=== PATIENT | female | born 1990 | race Caucasian/White ===

== ENCOUNTER → 2018-05-17 | Outpatient (CLI) | payer BC ==
--- NOTE | ~2018-05-17 | 2DMMODE ---
[facility] [place] [address] 2 D/M-MODE ECHOCARDIOGRAM Name: MORAKELVIN M Room #: REG [facility]#: [id number] Admission: 05/17/18 Attend Phys: Osmin Watts Discharge: Date of : 89 Date of Service: 05/17/18 1402 Report #: [id number] THIS REPORT FOR: //name// APPROVED REPORT Study performed: 05/17/2018 13:08:14 EXAM: Comprehensive 2D, Doppler, and color-flow Echocardiogram Patient Location: Echo lab Status: routine BSA: 1.73 HR: 70 bpm BP: 115/90 mmHg Rhythm: NSR Other Information Study Quality: Good Indications Palpitations 2D Dimensions RVDd: 26.21 mm LVEF(%): 57.61 (>50%) IVSd: 9.17 (7-11mm) LVOT Diam: 20.82 (18-24mm) LVDd: 44.84 mm PWd: 7.03 (7-11mm) Ascending Ao: 31.14 (22-36mm) LVDs: 31.32 (25-40mm) Aortic Root: 26.49 mm IVC: 1.70 mm Núñez's LVEF: 57.61 % Volumes Left Atrial Volume (Systole) Single Plane 4CH: 14.67 mL Single Plane 2CH: 34.21 mL LA ESV Index: 16.00 mL/m2 Aortic Valve AoV Peak Emeterio.: 1.24 m/s AO Peak Gr.: 6.16 mmHg LVOT Max P.64 mmHg LVOT Max V: 0.95 m/s MARITZA Vmax: 2.62 cm2 Mitral Valve E/A Ratio: 1.0 MV Decel. Time: 156.51 ms [facility] [address] [place] [address] 2 D/M-MODE ECHOCARDIOGRAM Name: KELVIN VELAZCO Room #: [facility]#: [id number] Admission: 05/17/18 Attend Phys: Osmin Watts Discharge: Date of : 89 Date of Service: 05/17/18 1402 Report #: [id number] MV E Max Emeterio.: 0.58 m/s MV A Emeterio.: 0.57 m/s MV PHT: 45.39 ms IVRT: 124.57 ms Pulmonary Valve PV Peak Emeterio.: 0.76 m/s PV Peak Gr.: 2.30 mmHg Pulmonary Vein P Vein S: 0.56 m/s P Vein A: 0.19 m/s P Vein D: 0.42 m/s P Vein S/D Ratio: 1.33 Tricuspid Valve RAP Estimate: 5.00 mmHg Left Ventricle The left ventricle is normal size. There is normal LV segmental wall motion. There is normal left ventricular wall thickness. The left ventricular systolic function is normal. LVEF is 55-60%. The left ventricular diastolic function is normal. Right Ventricle The right ventricle is normal size. The right ventricular systolic function is normal. Atria The left atrium size is normal. The right atrium size is normal. Aortic Valve The aortic valve is normal in structure. No aortic regurgitation is present. There is no aortic valvular stenosis. Mitral Valve The mitral valve is normal in structure. There is no mitral valve regurgitation noted. No evidence of mitral valve stenosis. Tricuspid Valve The tricuspid valve is normal in structure. Unable to assess PA pressure. There is no tricuspid valve regurgitation noted. Pulmonic Valve The pulmonary valve is normal in structure. Trace pulmonic regurgitation. [facility] [address] [place] [address] 2 D/M-MODE ECHOCARDIOGRAM Name: KELVIN VELAZCO Radames Room #: REG [facility] [id number] Admission: 05/17/18 [facility] Dis[facility]: Date of : 89 Date of Service: 05/17/18 1402 Report #: [id number] Great Vessels The aortic root is normal in size. IVC is normal in size and collapses >50% with inspiration. Pericardium There is no pericardial effusion. <Conclusion> The left ventricle is normal size. LVEF is 55-60%. The aortic valve is normal in structure. The mitral valve is normal in structure. The tricuspid valve is normal in structure. The pulmonary valve is normal in structure. Trace pulmonic regurgitation. There is no pericardial effusion. <ELECTRONICALLY SIGNED> By: Jimbo Bennett MD 05/17/181401 01 01 Jimbo Bennett MD /INF
== END ==
LOC: CV 08:37
DX: R00.2 Palpitations (principal)